=== PATIENT | male | born 1975 | race Caucasian/White ===

== ENCOUNTER → 2016-10-31 | Outpatient (CLI) | payer OTHER ==
--- NOTE | 2016-10-31 13:17 | DIAGNOSTIC IMAGING REPORT ---
LUMBAR SPINE 5 VIEWS HISTORY: Pain CHRONIC BACK PAIN COMPARISON: None. FINDINGS: There is no fracture. No subluxation. Degenerative disc change L5-S1. Associated vacuum disc. Posterior elements are intact. IMPRESSION: Degenerative disc change L5-S1. Otherwise negative study. Electronically signed by: David Bhardwaj M.D. 10/31/2016 1:16 PM Dictated Date/Time: 10/31/2016 1:14 PM
== END | disposition home or self-care (01) ==
LOC: C.RAD1850 12:57
PROVIDERS: ATTEND Neuromusculoskeletal Medicine & OMM
DX: M19.90 Unspecified osteoarthritis, unspecified site (principal); M54.5 Low back pain